=== PATIENT | female | born 1945 | race Caucasian/White ===

== ENCOUNTER 2019-07-27 08:28 | Emergency (ER) | payer MEDICARE ==
[~2019-07-27] VITALS: Ht 157.5 cm; Wt 81.7 kg
[~2019-07-27 08:28] MED LIST: ACET325 PO; ALEVE220 MG PO; ASPI325EC PO; CALCAVITDA PO; CETI10 PO; CODACE30; CODACE30 PO; DIPH50 PO; ENABLEX PO; Flagyl500 MG PO; Flonase 0.05% N16 GM; HYDACE5 PO; MAGNESIUM PO; NAPR220; Nexium40 MG PO; Non-Aspirin Ex500 MG PO; OMEP20ER; RANI150 PO; STOOL SOFTENER PO; STOOL SOFTENER1 EAC1 PO; Toviaz8 MG PO; VITAMIN D-32000 UNIT PO
[2019-07-27] MEDS ORDERED: METOPROLOL TART25 MG PO (08:50)
[2019-07-27] MEDS ORDERED: Estradiol0.5 MG (08:51)
[2019-07-27] MEDS ORDERED: TROSPIUM CHLORI60 MG PO (08:51)
[2019-07-27] MEDS ORDERED: ZYRTEC10 M2 PO (08:52)
[2019-07-27] MEDS ORDERED: PRED20 (08:53)
[2019-07-27] MEDS ORDERED: Cyproheptadine H4 MG PO (09:27)
== END 2019-07-27 09:40 | disposition home or self-care (01) ==
LOC: ER 08:28
DX: L50.9 Urticaria, unspecified (principal); K21.9 Gastro-esophageal reflux disease without esophagitis; Z88.6 Allergy status to analgesic agent; Z79.899 Other long term (current) drug therapy; Z87.891 Personal history of nicotine dependence
CPT/HCPCS: 96372; 99283-25; J3301

== ENCOUNTER → 2019-11-08 | Outpatient (CLI) | payer MEDICARE ==
[~2019-11-08] MED LIST changes: +Cyproheptadine H4 MG PO; +Estradiol0.5 MG; +METOPROLOL TART25 MG PO; +PRED20; +TROSPIUM CHLORI60 MG PO; +ZYRTEC10 M2 PO
[2019-11-08 15:00] LABS: Source, Urine Clean Catch
[2019-11-08 16:36] LABS: Bilirubin, Urine Neg (Neg); Blood, Urine 1+ (Neg); Glucose Qualitative, Urine Neg (Neg); Ketones, Urine Neg (Neg); Leukocyte Esterase, Urine 3+ (Neg); Nitrite, Urine Neg (Neg); Protein, Urine Neg (Neg); Specific Gravity, Urine 1.015 (1.003-1.022); Urobilinogen, Urine NORM (Normal)
[2019-11-08 16:57] LABS: Appearance, Urine Cloudy (Clear); Color, Urine Yellow (P-Yellow)
[2019-11-08 16:58] LABS: Red Blood Cells, Urine 0-2 /hpf (0-2)
[2019-11-08 16:59] LABS: Bacteria Many /hpf; Squamous Epithelial Cells Few /hpf (Few)
== END | disposition home or self-care (01) ==
LOC: LAB SHORT 14:57 → LAB 14:57
PROVIDERS: Urology
DX: N39.0 Urinary tract infection, site not specified (principal)
CPT/HCPCS: 81001; 87077; 87086; 87186

== ENCOUNTER 2020-03-24 07:51 | Day surgery (SDC) | payer MEDICARE ==
[~2020-03-24] VITALS: Ht 157.5 cm; Wt 78.5 kg
[~2020-03-24 07:51] MED LIST changes: +ACET500 PO; +AMLO5 PO; +DARIFENACIN ER15 MG PO; +FLUT.05NI; +METO25 PO; +OMEP20ER PO
[2020-03-24] MEDS ORDERED: CALCIUM 600 +1 EA11 (08:08)
[2020-03-24] MEDS ORDERED: ZYRTEC10 M2 (08:08)
[2020-03-24] MEDS ORDERED: CEPH250A (08:08)
[2020-03-24] MEDS ORDERED: VITAMIN D310 MC5 (08:09)
[2020-03-24] MEDS ORDERED: Hair, Skin & N1 EACH (08:09)
[2020-03-24] MEDS ORDERED: STOOL SOFTENER (08:10)
[2020-03-24] MEDS ORDERED: Vitamin B-Comp1 EACH (08:10)
== END 2020-03-24 10:31 | disposition home or self-care (01) ==
LOC: ORSCSDS 07:51
PROVIDERS: Internal Medicine Gastroenterology
PROC: 0DBL8ZX Excision of Transverse Colon, Via Natural or Artificial Opening Endoscopic, Diagnostic (ICD-10-PCS; principal; 2020-03-24 09:00)
PROC: 0DB58ZX Excision of Esophagus, Via Natural or Artificial Opening Endoscopic, Diagnostic (ICD-10-PCS; principal; 2020-03-24 09:00)
PROC: 0DBK8ZX Excision of Ascending Colon, Via Natural or Artificial Opening Endoscopic, Diagnostic (ICD-10-PCS; principal; 2020-03-24 09:00)
PROC: 0D757ZZ Dilation of Esophagus, Via Natural or Artificial Opening (ICD-10-PCS; principal; 2020-03-24 09:00)
DX: Z12.11 Encounter for screening for malignant neoplasm of colon (principal); Z86.010 Personal history of colon polyps; K57.30 Diverticulosis of large intestine without perforation or abscess without bleeding; K21.00 Gastro-esophageal reflux disease with esophagitis, without bleeding; R13.14 Dysphagia, pharyngoesophageal phase; D12.2 Benign neoplasm of ascending colon; D12.3 Benign neoplasm of transverse colon; K44.9 Diaphragmatic hernia without obstruction or gangrene; Z87.891 Personal history of nicotine dependence; E66.9 Obesity, unspecified; Z68.34 Body mass index [BMI] 34.0-34.9, adult; I10 Essential (primary) hypertension; Z79.899 Other long term (current) drug therapy
CPT/HCPCS: 88305; J0461; J2405; J2704; J7120

== ENCOUNTER → 2020-08-28 | Outpatient (CLI) | payer MEDICARE ==
[~2020-08-28] MED LIST changes: +CALCIUM 600 +1 EA11; +CEPH250A; +Hair, Skin & N1 EACH; +STOOL SOFTENER; +VITAMIN D310 MC5; +Vitamin B-Comp1 EACH; +ZYRTEC10 M2
[2020-08-28 14:28] LABS: Source, Urine Clean Catch
[2020-08-28 19:26] LABS: Appearance, Urine Turbid (Clear); Bilirubin, Urine Neg (Neg); Blood, Urine 1+ (Neg); Color, Urine Yellow (P-Yellow); Glucose Qualitative, Urine Neg (Neg); Ketones, Urine Neg (Neg); Leukocyte Esterase, Urine 3+ (Neg); Nitrite, Urine Pos (Neg); Protein, Urine 2+ (Neg); Urobilinogen, Urine NORM (Normal)
[2020-08-28 19:38] LABS: Amorphous Heavy (0-Heavy); Bacteria Mod /hpf; Red Blood Cells, Urine 0-2 /hpf (0-2); Squamous Epithelial Cells Few /hpf (Few); White Blood Cells, Urine 50-100 /hpf (0-5)
== END | disposition home or self-care (01) ==
LOC: LAB 12:40 → LAB SHORT 12:40
PROVIDERS: Physician Assistant
DX: N39.0 Urinary tract infection, site not specified (principal)
CPT/HCPCS: 81001; 87077; 87086; 87186

== ENCOUNTER → 2020-11-08 | Outpatient (CLI) | payer MEDICARE ==
[2020-11-08 12:18] LABS: Source, Urine Clean Catch
[2020-11-08 15:51] LABS: Appearance, Urine Hazy (Clear); Bilirubin, Urine Neg (Neg); Blood, Urine 1+ (Neg); Color, Urine Yellow (P-Yellow); Glucose Qualitative, Urine Neg (Neg); Ketones, Urine Neg (Neg); Leukocyte Esterase, Urine 3+ (Neg); Nitrite, Urine Pos (Neg); Protein, Urine 1+ (Neg); Urobilinogen, Urine NORM (Normal)
[2020-11-08 16:18] LABS: Bacteria Many /hpf; Squamous Epithelial Cells Rare /hpf (Few); White Blood Cells, Urine TNTC /hpf (0-5)
== END | disposition home or self-care (01) ==
LOC: OLS 12:16 → LAB SHORT 12:16
PROVIDERS: Physician Assistant
DX: N39.0 Urinary tract infection, site not specified (principal)
CPT/HCPCS: 81001; 87077; 87086; 87186

== ENCOUNTER → 2021-01-12 | Outpatient (CLI) | payer MEDICARE ==
[2021-01-12 16:25] LABS: Source, Urine Clean Catch
[2021-01-12 17:51] LABS: Appearance, Urine Cloudy (Clear); Bilirubin, Urine Neg (Neg); Blood, Urine Neg (Neg); Color, Urine Yellow (P-Yellow); Glucose Qualitative, Urine Neg (Neg); Ketones, Urine Neg (Neg); Leukocyte Esterase, Urine 3+ (Neg); Nitrite, Urine Neg (Neg); Protein, Urine 1+ (Neg); Specific Gravity, Urine 1.025 (1.003-1.022); Urobilinogen, Urine NORM (Normal)
[2021-01-12 18:10] LABS: Amorphous Heavy (0-Heavy); Bacteria Rare /hpf; Red Blood Cells, Urine 0-2 /hpf (0-2); Squamous Epithelial Cells Rare /hpf (Few)
== END | disposition home or self-care (01) ==
LOC: LAB 16:22 → LAB SHORT 16:22
PROVIDERS: Physician Assistant
DX: N39.0 Urinary tract infection, site not specified (principal)
CPT/HCPCS: 81001; 87077; 87086; 87186

== ENCOUNTER 2021-08-05 09:26 | Emergency (ER) | payer MEDICARE ==
[~2021-08-05] VITALS: Ht 157.5 cm; Wt 81.7 kg
[~2021-08-05 09:26] MED LIST changes: -CALCIUM 600 +1 EA11; +CALCIUM 600 +1 EA11 PO; -Hair, Skin & N1 EACH; +Hair, Skin & N1 EACH PO; -VITAMIN D310 MC5; +VITAMIN D310 MC5 PO; -Vitamin B-Comp1 EACH; +Vitamin B-Comp1 EACH PO; -ZYRTEC10 M2
[2021-08-05] MEDS ORDERED: ESTRADIOL0.5 MG PO (09:51)
[2021-08-05] MEDS ORDERED: PRAVASTATIN SOD20 MG PO (09:53)
[2021-08-05 10:23] LABS: BASOPHILS ABSOLUTE AUTO 0.03 K/mm3 (0.00-0.23); BASOPHILS PERCENT AUTO 1 % (0-2); EOSINOPHILS ABSOLUTE AUTO 0.13 K/mm3 (0.00-0.68); EOSINOPHILS PERCENT AUTO 2 % (0-6); Hematocrit 49.5 % (33.0-51.0); IMMATURE GRAN ABSOLUTE AUTO 0.02 K/mm3 (0.00-0.10); IMMATURE GRAN PERCENT AUTO 0 % (0-1); LYMPHOCYTES ABSOLUTE AUTO 1.72 K/mm3 (0.84-5.20); LYMPHOCYTES PERCENT AUTO 27 % (21-46); MONOCYTES ABSOLUTE AUTO 0.33 K/mm3 (0.16-1.47); MONOCYTES PERCENT AUTO 5 % (4-13); Mean Corpuscular HGB 29.2 pg (26.0-34.0); Mean Corpuscular HGB Conc 32.3 g/dL (31.5-36.5); Mean Corpuscular Volume 90 fL (80-100); Mean Platelet Volume 10.4 fL (9.1-12.4); NEUTROPHILS ABSOLUTE AUTO 4.11 K/mm3 (1.96-9.15); NEUTROPHILS PERCENT AUTO 65 % (41-73); Platelet Count 252 K/mm3 (150-400); RDW Coefficient Variation 13.3 % (11.7-14.2); RDW Standard Deviation 44.4 fL (35.1-46.3); Red Blood Cell Count 5.48 M/mm3 (3.80-5.20); White Blood Cell Count 6.34 K/mm3 (4.00-11.30)
[2021-08-05 10:40] LABS: International Normalized Ratio 0.95
[2021-08-05 10:46] LABS: Alanine Aminotransfer (ALT/SGP 22 U/L (12-78); Albumin, Blood 3.8 g/dL (3.4-5.0); Alk Phos 131 U/L (50-136); Anion Gap 7 mmol/L (6-16); Aspartate Aminotrans (AST/SGOT 21 U/L (12-37); Bilirubin, Total 0.5 mg/dL (0.1-1.0); Blood Urea Nitrogen 10 mg/dL (8-24); Bun/Creatinine Ratio 16.5 (12.0-20.0); CO2, Blood 25 mmol/L (21-32); Calcium, Blood 9.3 mg/dL (8.5-10.1); Chloride, Blood 107 mmol/L (98-108); Creatinine, Blood 0.61 mg/dL (0.40-1.00); Globulin, Blood 3.8 g/dL (2.2-4.0); Glomerular Filtration Rate >60 (60-); Glucose, Blood 108 mg/dL (70-99); Potassium, Blood 4.1 mmol/L (3.5-5.5); Sodium, Blood 139 mmol/L (136-145); Total Protein, Blood 7.6 g/dL (6.4-8.2)
== END 2021-08-05 12:49 | disposition home or self-care (01) ==
LOC: ER 09:26
PROVIDERS: Emergency Medicine
DX: I63.9 Cerebral infarction, unspecified (principal); K21.9 Gastro-esophageal reflux disease without esophagitis; I10 Essential (primary) hypertension; Z79.899 Other long term (current) drug therapy
CPT/HCPCS: 36415; 70551; 71045; 80053; 84484; 85025; 85610; 93005; 93010; 93880; 99284-25; A9270

== ENCOUNTER 2021-08-20 04:25 | Emergency (ER) | payer MEDICARE ==
[~2021-08-20] VITALS: Ht 157.5 cm; Wt 81.7 kg
[~2021-08-20 04:25] MED LIST changes: +ESTRADIOL0.5 MG PO; +PRAVASTATIN SOD20 MG PO
[2021-08-20 04:56] LABS: BASOPHILS ABSOLUTE AUTO 0.05 K/mm3 (0.00-0.23); BASOPHILS PERCENT AUTO 1 % (0-2); EOSINOPHILS ABSOLUTE AUTO 0.16 K/mm3 (0.00-0.68); EOSINOPHILS PERCENT AUTO 2 % (0-6); Hematocrit 46.9 % (33.0-51.0); Hemoglobin 15.6 g/dL (11.5-16.0); IMMATURE GRAN ABSOLUTE AUTO 0.02 K/mm3 (0.00-0.10); IMMATURE GRAN PERCENT AUTO 0 % (0-1); LYMPHOCYTES ABSOLUTE AUTO 2.53 K/mm3 (0.84-5.20); LYMPHOCYTES PERCENT AUTO 32 % (21-46); MONOCYTES ABSOLUTE AUTO 0.46 K/mm3 (0.16-1.47); MONOCYTES PERCENT AUTO 6 % (4-13); Mean Corpuscular HGB 29.3 pg (26.0-34.0); Mean Corpuscular HGB Conc 33.3 g/dL (31.5-36.5); Mean Corpuscular Volume 88 fL (80-100); NEUTROPHILS ABSOLUTE AUTO 4.61 K/mm3 (1.96-9.15); NEUTROPHILS PERCENT AUTO 59 % (41-73); Platelet Count 266 K/mm3 (150-400); RDW Coefficient Variation 13.5 % (11.7-14.2); Red Blood Cell Count 5.33 M/mm3 (3.80-5.20); White Blood Cell Count 7.83 K/mm3 (4.00-11.30)
[2021-08-20 05:08] LABS: Alanine Aminotransfer (ALT/SGP 21 U/L (12-78); Albumin, Blood 3.8 g/dL (3.4-5.0); Alk Phos 123 U/L (50-136); Anion Gap 5 mmol/L (6-16); Aspartate Aminotrans (AST/SGOT 17 U/L (12-37); Bilirubin, Total 0.7 mg/dL (0.1-1.0); Blood Urea Nitrogen 16 mg/dL (8-24); Bun/Creatinine Ratio 23.2 (12.0-20.0); CO2, Blood 29 mmol/L (21-32); Calcium, Blood 9.2 mg/dL (8.5-10.1); Chloride, Blood 106 mmol/L (98-108); Creatinine, Blood 0.69 mg/dL (0.40-1.00); Globulin, Blood 3.7 g/dL (2.2-4.0); Glomerular Filtration Rate >60 (60-); Glucose, Blood 109 mg/dL (70-99); Potassium, Blood 3.6 mmol/L (3.5-5.5); Sodium, Blood 140 mmol/L (136-145); Total Protein, Blood 7.5 g/dL (6.4-8.2)
[2021-08-20] MEDS ORDERED: XARELTO20 MG PO (05:51)
== END 2021-08-20 06:13 | disposition home or self-care (01) ==
LOC: ER 04:25
PROVIDERS: Student in an Organized Health Care Education/Training Program
DX: G45.9 Transient cerebral ischemic attack, unspecified (principal); K21.9 Gastro-esophageal reflux disease without esophagitis; I10 Essential (primary) hypertension; Z79.899 Other long term (current) drug therapy
CPT/HCPCS: 70450; 80053; 85025; 93005; 93010; 99285-25; A9270

== ENCOUNTER → 2022-02-16 | Outpatient (CLI) | payer MEDICARE ==
[~2022-02-16] MED LIST changes: +XARELTO20 MG PO
== END | disposition home or self-care (01) ==
LOC: LAB SHORT 17:03 → LAB 17:03
DX: L24.9 Irritant contact dermatitis, unspecified cause (principal)
CPT/HCPCS: 87070; 87205

== ENCOUNTER → 2022-05-10 | Outpatient (CLI) | payer MEDICARE ==
[2022-05-10 12:46] LABS: Source, Urine Clean Catch
[2022-05-10 14:56] LABS: Appearance, Urine Cloudy (Clear); Bilirubin, Urine Neg (Neg); Blood, Urine 1+ (Neg); Color, Urine Yellow (P-Yellow); Glucose Qualitative, Urine Neg (Neg); Ketones, Urine Neg (Neg); Leukocyte Esterase, Urine 3+ (Neg); Nitrite, Urine Pos (Neg); Protein, Urine 2+ (Neg); Urobilinogen, Urine NORM (Normal)
[2022-05-10 15:19] LABS: Bacteria Many /hpf; Hyaline Casts 0-2 /lpf (0-2); Squamous Epithelial Cells Mod /hpf (Few); Transitional Epithelial Cells Rare /hpf (0-Rare); White Blood Cells, Urine TNTC /hpf (0-5)
== END ==
LOC: LAB SHORT 12:44 → LAB 12:44
PROVIDERS: Physician Assistant
DX: N39.0 Urinary tract infection, site not specified (principal)
CPT/HCPCS: 81001; 87077; 87086; 87186

== ENCOUNTER 2023-04-22 09:02 | Day surgery (SDC) | payer MEDICARE ==
[~2023-04-22] VITALS: Ht 157.5 cm; Wt 80.1 kg
[2023-04-22] MEDS ORDERED: LISI5 (09:37)
[2023-04-22] MEDS ORDERED: ATOR80 (09:37)
[2023-04-22] MEDS ORDERED: ASPI81CH (09:38)
[2023-04-22] MEDS ORDERED: Loratadine10 MG (09:38)
[2023-04-22] MEDS ORDERED: URITRAX47 GM (09:40)
[2023-04-22] MEDS ORDERED: DARIFENACIN ER15 MG (09:40)
[2023-04-22] MEDS ORDERED: QUNOL MEGA COQ100 MG (09:40)
[2023-04-22] MEDS ORDERED: CLIMARA1 EACH (09:41)
[2023-04-22] MEDS ORDERED: DOCU100 (09:46)
[2023-04-22] MEDS ORDERED: POTA20PAC (09:47)
[2023-04-22] MEDS ORDERED: MAG-OXIDE MAGN200 MG (09:47)
[2023-04-22 12:33] VITALS: BP 115/61
== END 2023-04-22 12:36 | disposition home or self-care (01) ==
LOC: ORSCSDS 09:02
PROVIDERS: Internal Medicine Gastroenterology
PROC: 0DBM8ZX Excision of Descending Colon, Via Natural or Artificial Opening Endoscopic, Diagnostic (ICD-10-PCS; principal; 2023-04-22 10:30)
DX: Z12.11 Encounter for screening for malignant neoplasm of colon (principal); Z86.010 Personal history of colon polyps; D12.4 Benign neoplasm of descending colon; Z87.891 Personal history of nicotine dependence; K57.30 Diverticulosis of large intestine without perforation or abscess without bleeding; K21.9 Gastro-esophageal reflux disease without esophagitis; Z68.33 Body mass index [BMI] 33.0-33.9, adult; Z79.82 Long term (current) use of aspirin; Z79.899 Other long term (current) drug therapy
CPT/HCPCS: 88305; J2704; J7120; Q9968

== ENCOUNTER 2023-07-29 17:17 | Emergency (ER) | payer MEDICARE ==
[~2023-07-29] VITALS: Ht 157.5 cm; Wt 81.7 kg
[~2023-07-29 17:17] MED LIST changes: +ASPI81CH; +ATOR80; +CLIMARA1 EACH; +DARIFENACIN ER15 MG; +DOCU100; +LISI5; +Loratadine10 MG; +MAG-OXIDE MAGN200 MG; +POTA20PAC; +QUNOL MEGA COQ100 MG; +URITRAX47 GM
[2023-07-29 17:54] LABS: BASOPHILS ABSOLUTE AUTO 0.04 K/mm3 (0.00-0.23); BASOPHILS PERCENT AUTO 1 % (0-2); EOSINOPHILS ABSOLUTE AUTO 0.11 K/mm3 (0.00-0.68); EOSINOPHILS PERCENT AUTO 1 % (0-6); Hematocrit 44.8 % (33.0-51.0); IMMATURE GRAN ABSOLUTE AUTO 0.03 K/mm3 (0.00-0.10); IMMATURE GRAN PERCENT AUTO 0 % (0-1); LYMPHOCYTES ABSOLUTE AUTO 2.23 K/mm3 (0.84-5.20); LYMPHOCYTES PERCENT AUTO 26 % (21-46); MONOCYTES ABSOLUTE AUTO 0.47 K/mm3 (0.16-1.47); MONOCYTES PERCENT AUTO 5 % (4-13); Mean Corpuscular HGB 29.6 pg (26.0-34.0); Mean Corpuscular HGB Conc 33.5 g/dL (31.5-36.5); Mean Corpuscular Volume 89 fL (80-100); Mean Platelet Volume 10.6 fL (9.1-12.4); NEUTROPHILS ABSOLUTE AUTO 5.78 K/mm3 (1.96-9.15); NEUTROPHILS PERCENT AUTO 67 % (41-73); Platelet Count 266 K/mm3 (150-400); RDW Coefficient Variation 13.9 % (11.7-14.2); RDW Standard Deviation 44.8 fL (35.1-46.3); Red Blood Cell Count 5.06 M/mm3 (3.80-5.20); White Blood Cell Count 8.66 K/mm3 (4.00-11.30)
[2023-07-29 18:25] LABS: Albumin, Blood 3.5 g/dL (3.4-5.0); Bilirubin, Total 0.5 mg/dL (0.1-1.0); Bun/Creatinine Ratio 27.9 (12.0-20.0); Calcium, Blood 8.9 mg/dL (8.5-10.1); Creatinine, Blood 0.72 mg/dL (0.40-1.00); Globulin, Blood 3.6 g/dL (2.2-4.0); Potassium, Blood 4.2 mmol/L (3.5-5.5); Total Protein, Blood 7.1 g/dL (6.4-8.2)
[2023-07-30] MEDS ORDERED: CLOP75 PO (02:36)
[2023-07-30 02:59] VITALS: BP 163/78
== END 2023-07-30 02:59 | disposition home or self-care (01) ==
LOC: ER 17:17
PROVIDERS: Physician Assistant
DX: I65.21 Occlusion and stenosis of right carotid artery (principal); R20.2 Paresthesia of skin; Z88.8 Allergy status to other drugs, medicaments and biological substances; Z88.2 Allergy status to sulfonamides; Z88.1 Allergy status to other antibiotic agents; Z79.899 Other long term (current) drug therapy; Z79.82 Long term (current) use of aspirin; Z87.891 Personal history of nicotine dependence
CPT/HCPCS: 70450; 70496; 70498; 80053; 85025; 93005; 93010; 99284-25; Q9967

== ENCOUNTER 2024-04-23 06:27 | Day surgery (SDC) | payer MEDICARE ==
[~2024-04-23] VITALS: Ht 157.5 cm; Wt 82.1 kg
[~2024-04-23 06:27] MED LIST changes: +CLOP75 PO; -MAG-OXIDE MAGN200 MG; +MAG-OXIDE MAGN200 MG PO
[2024-04-23] MEDS ORDERED: Lactated Ringer's 1,000 ML IV ONE ×2 (07:29→07:42)
[2024-04-23] MEDS ORDERED: propofoL 50 ML IV ONE (07:29)
[2024-04-23 09:14] VITALS: BP 101/70
== END 2024-04-23 09:10 | disposition home or self-care (01) ==
LOC: ORSCSDS 06:27
PROVIDERS: Internal Medicine Gastroenterology
PROC: 0DBM8ZX Excision of Descending Colon, Via Natural or Artificial Opening Endoscopic, Diagnostic (ICD-10-PCS; principal; 2024-04-23 08:00)
DX: Z12.11 Encounter for screening for malignant neoplasm of colon (principal); Z86.0101 Personal history of adenomatous and serrated colon polyps; Z86.73 Personal history of transient ischemic attack (TIA), and cerebral infarction without residual deficits; D12.4 Benign neoplasm of descending colon; Z79.899 Other long term (current) drug therapy; K57.30 Diverticulosis of large intestine without perforation or abscess without bleeding; Z87.891 Personal history of nicotine dependence
CPT/HCPCS: 88305; J2704; J7120